=== PATIENT | male | born 1975 | race Caucasian/White ===

== ENCOUNTER 2017-05-23 16:57 | Emergency (ER) | payer BC, OTHER ==
[2017-05-23 17:02] VITALS: BP 148/76
[2017-05-23] MEDS ORDERED: Diphtheria,Pertussis(Acell),Tetanus Vaccine 0.5 ML SDV IM ONE (17:34)
--- NOTE | 2017-05-23 17:42 | EDM.PDOC ---
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 Had initial bleeding. Knows tetanus needs updated. Has some discomfort in palm but denies loss of function in left hand/wrist/fingers. No numbness or tingling. No other complaints. Left Hand Pain Score (Numeric/FACES): 1 - Related Data Allergies Allergy/AdvReac Type Severity Reaction Status Date / Time lisinopril Allergy Cough Verified 05/23/17 16:59 Home Meds: Home Meds Cephalexin [Keflex] 500 mg PO Q12H #10 cap 05/23/17 [Rx] Chlorthalidone 25 mg PO DAILY 05/23/17 [History] Valsartan 320 mg PO DAILY 05/23/17 [History] Past Medical History Cardiovascular History: Reports: Hypertension Social & Family History - Tobacco Use Smoking Status *Q: Never Smoker Second Hand Smoke Exposure: No - Alcohol Use Alcohol Use History: Yes Number of Drinks Per Day Comment: Used alcohol several times a month - Recreational Drug Use Recreational Drug Use: No ED ROS GENERAL - Review of Systems Review Of Systems: ROS reveals no pertinent complaints other than HPI. ED EXAM, SKIN/RASH Exam: See Below Exam Limited By: No Limitations General Appearance: Alert, WD/WN, No Apparent Distress Eye Exam: Bilateral Eye: EOMI, PERRL Throat/Mouth: Normal Voice, No Airway Compromise Head: Atraumatic, Normocephalic Extremities: Other (left hand shows small puncture wound on palm near base of thumb. No tendon loss of function noted. Good grasp. Fingers and wrist have full ROM. No loss of sensation. ) Neurological: Alert, Oriented, Normal Cognition, Normal Gait, No Motor/Sensory Deficits Psychiatric: Normal Affect, Normal Mood Skin: Warm, Dry, Other (small 0.5cm puncture wound left palm) Course - Vital Signs Last Recorded V/S: Last Vital Signs Temp 37.2 C 05/23/17 17:01 Pulse 79 05/23/17 17:01 Resp 18 05/23/17 17:01 BP 148/76 H 05/23/17 17:01 Pulse Ox 97 05/23/17 17:01 - Orders/Labs/Meds Orders: Active Orders 24 hr Category Date Time Status Vaccines to be Administered [RC] PER UNIT ROUTINE Care 05/23/17 17:34 Active Hand 2V Lt [CR] Stat Exams 05/23/17 17:35 Taken Bacitracin/Neomycin/Polymyxin [Triple Antibiotic Oint] Med 05/23/17 18:24 Once 1 each TOP ONETIME ONE Meds: Medications Discontinued Medications Generic Name Dose Route Start Last Admin Trade Name Jeet PRN Reason Stop Dose Admin Cephalexin 500 mg 05/23/17 18:22 Keflex PO 05/23/17 18:23 ONETIME ONE Diphtheria/Tetanus/Acell Pertussis 0.5 ml 05/23/17 17:34 05/23/17 17:56 Adacel IM 05/23/17 17:35 0.5 ml .ONCE ONE Administration - Radiology Interpretation Free Text/Narrative:: Xray of hand shows hematoma in left palm, no bony injury - Re-Assessments/Exams Free Text/Narrative Re-Assessment/Exam: 05/23/17 17:44 Tetanus updated. Xray of hand performed. Wound soaked and cleansed. Due to nature of injury and small puncture wound, no sutures at this time. Wound care discussed with patient. To follow up as needed if any problems develop. 5 day course of Keflex planned. Departure - Departure Time of Disposition: 18:21 Disposition: Home, Self-Care 01 Condition: Good Clinical Impression: Puncture wound of hand, left Qualifiers: Encounter type: initial encounter Foreign body presence: without foreign body Qualified Code(s): S61.432A - Puncture wound without foreign body of left hand, initial encounter - Discharge Information Prescriptions: Cephalexin [Keflex] 500 mg PO Q12H #10 cap Instructions: Puncture Wound, [id number] Referrals: Kristi Hadley PHYTOPATHOLOGIST [Primary Care Provider] - Forms: ED Department Discharge Additional Instructions: Wound soaks and wound care as discussed. Take Keflex for five days as directed. Follow up for re-evaluation if you have any problems such as sign of infection. - My Orders Last 24 Hours: My Active Orders 05/23/17 17:34 Vaccines to be Administered [RC] PER UNIT ROUTINE 05/23/17 17:35 Hand 2V Lt [CR] Stat 05/23/17 18:24 Bacitracin/Neomycin/Polymyxin [Triple Antibiotic Oint] 1 each TOP ONETIME ONE - Assessment/Plan Last 24 Hours: My Active Orders 05/23/17 17:34 Vaccines to be Administered [RC] PER UNIT ROUTINE 05/23/17 17:35 Hand 2V Lt [CR] Stat 05/23/17 18:24 Bacitracin/Neomycin/Polymyxin [Triple Antibiotic Oint] 1 each TOP ONETIME ONE
[2017-05-23] MEDS ORDERED: Cephalexin 250 MG Cap PO ONE (18:22)
[2017-05-23] MEDS ORDERED: Bacitracin/Neomycin/Polymyxin B Oint 0.9 GM U/D Packet TOP ONE (18:24)
== END 2017-05-23 18:57 | disposition home or self-care (01) ==
LOC: LL.ED 16:57
DX: S61.432A Puncture wound without foreign body of left hand, initial encounter (principal); I10 Essential (primary) hypertension; Z88.8 Allergy status to other drugs, medicaments and biological substances; Z79.2 Long term (current) use of antibiotics; Z79.899 Other long term (current) drug therapy; Z23 Encounter for immunization; W27.0XXA Contact with workbench tool, initial encounter
CPT/HCPCS: 73120; 90471; 90715; 99283; A9270